=== PATIENT | male | born 1960 | race Caucasian/White ===

== ENCOUNTER → 2021-06-20 15:46 | Outpatient (BNVA) | payer OTHER, SELFPAY | PROVIDERS: Visit Provider Family Medicine | DX: I10 Essential (primary) hypertension (principal); H18.609 Keratoconus, unspecified, unspecified eye; Z94.7 Corneal transplant status; N52.9 Male erectile dysfunction, unspecified | CPT/HCPCS: 80053; 80061; 83036; 85025 ==

== ENCOUNTER 2021-11-22 14:17 | Outpatient (CLI) | payer OTHER, SELFPAY ==
--- NOTE | 2021-11-22 14:30 | XR_ITS ---
WS: [id number] XR KUB [id number] REASON FOR EXAM: Left Flank pain, possible nephrolithiasis FINDINGS: Moderate amount stool throughout the colon. No significant small bowel distention. No free air or retroperitoneal air identified. No significant calcifications in the abdomen or pelvis. Moderate degenerative spondylosis in lumbar spine. Moderate osteoarthritis in the right hip with mild osteoarthritis in the left hip. Bony pelvis otherw ise unremarkable. XR/XR KUB [id number] IMPRESSION: No acute abdominal finding. No urinary tract calculi identified.
== END 2021-11-22 14:18 | disposition home or self-care (01) ==
PROVIDERS: PCP Family Medicine; Visit Provider Family Medicine
DX: R10.9 Unspecified abdominal pain (principal); R31.9 Hematuria, unspecified
CPT/HCPCS: 74018; 81000

== ENCOUNTER → 2021-12-03 12:54 | Outpatient (BNVA) | payer OTHER, SELFPAY | PROVIDERS: PCP Family Medicine; Visit Provider Family Medicine | DX: R10.9 Unspecified abdominal pain (principal); R31.9 Hematuria, unspecified; N52.9 Male erectile dysfunction, unspecified | CPT/HCPCS: 80053; 84153; 85025; 86140 ==

== ENCOUNTER 2022-03-04 13:57 | Outpatient (CLI) | payer OTHER, SELFPAY ==
--- NOTE | 2022-03-04 15:15 | CT_ITS ---
WS: [id number] CT ABDOMEN AND PELVIS NONCONTRAST HISTORY: L flank pain, worsening over 1 month. TECHNIQUE: Imaging performed through the abdomen and pelvis. Coronal and sagittal reformats are submi tted. All CT scans at [facility] use at least one of these dose optimization techniques: auto mated exposure control; mA and/or kV adjustment per patient size (includes targeted exams where dose is matched to clinical indication); or iterative reconstruction. DLP: 1293.21 mGy.cm COMPARISON: None available. Lower thorax: Lung bases are clear. Visualized heart is normal. No hiatal hernia. Liver: Mild hepatic steatosis. No bile duct dilatation. Gallbladder: Normal gallbladder. Pancreas: Low-attenuation throughout the pancreas. No adjacent inflammation. No duct dilatation. Spleen: Normal. Adrenal glands: Normal. No mass. Right kidney: Exophytic mass with wall calcification 1.3 cm lower pole. Nonobstructing calcification 3 mm in the mid kidney. Left kidney: No hydronephrosis. No renal obstruction. No ureteral calcification. Multiple cortical ma sses cannot be further characterized on this unenhanced study. Some of these contain increased densit y while others may be cysts. The largest in the mid kidney is 2.1 cm. There is a nonobstructing calci fication in the lower pole measuring 3 mm. Aorta: Mild atherosclerosis abdominal aorta with no aneurysm. No free fluid, intraperitoneal air or significant lymphadenopathy. GI tract: The appendix is not identified. No GI tract obstruction. Numerous diverticula in the descen ding and sigmoid colon. No acute diverticulitis. Normal appearance of the stomach. Abdominal wall: Small umbilical hernia contains fat only. Pelvis: Normal. Osseous structures: Fat-containing patent LEFT inguinal canal. Urinary bladder is normally distended. No free fluid. Central prostate calcifications. CT/CT kidney stone [id number] IMPRESSION: 1. No acute abdominal or pelvic abnormalities are identified. 2. No renal obstruction. 3. Nonobstructing bilateral renal calculi and bilateral renal masses which may be cysts or complex cyst. Without IV contrast cannot characterize further. Con sawyer helper follow-up ultrasound or renal mass CT protocol. 4. Colonic diverticulosis without acute diverticulitis.
== END 2022-03-04 13:58 | disposition home or self-care (01) ==
PROVIDERS: PCP Family Medicine; Visit Provider Family Medicine
DX: R10.9 Unspecified abdominal pain (principal); R31.9 Hematuria, unspecified; N20.0 Calculus of kidney; K57.30 Diverticulosis of large intestine without perforation or abscess without bleeding
CPT/HCPCS: 74176

== ENCOUNTER 2022-03-29 09:33 | Outpatient (CLI) | payer OTHER, SELFPAY ==
--- NOTE | 2022-03-29 09:48 | XR_ITS ---
WS: [id number] Exam: XR KUB [id number] Date/Time of Exam: 03/29/2022 9:53 AM Reason For Exam: RENAL CALCULI Comparison 11/22/2021. No bowel obstruction or free air. No sign of organ enlargement. 2 mm calcification visualized over th e lower pole of the left renal silhouette that apparently represents a known renal stone. Nonspecific small pelvic calcifications noted. Degenerative change and levoscoliosis of the lumbar spine. Benign -appearing sclerotic bone lesion seen in the medial aspect of the right iliac bone stable. XR/XR KUB [id number] IMPRESSION: 1. 2 mm calcification superimposing the lower pole left kidney apparently repre senting known renal stone. 2. No acute abdominal finding.
== END 2022-03-29 09:34 | disposition home or self-care (01) ==
PROVIDERS: PCP Family Medicine; Visit Provider Urology
DX: N20.0 Calculus of kidney (principal)
CPT/HCPCS: 74018; 81003

== ENCOUNTER 2022-04-05 12:13 | Outpatient (CLI) | payer OTHER, SELFPAY ==
--- NOTE | 2022-04-05 14:00 | CT_ITS ---
WS: [id number] CT ABDOMEN AND PELVIS WITH CONTRAST (renal mass CT protocol) HISTORY: Bilateral renal masses TECHNIQUE: Imaging performed of the abdomen and pelvis with IV contrast. Multiphasic imaging of the abdomen. Coronal and sagittal reformats are submitted. All CT scans at [facility] use at leas t one of these dose optimization techniques: automated exposure control; mA and/or kV adjustment per patient size (includes targeted exams where dose is matched to clinical indication); or iterative rec onstruction. IV CONTRAST: Omnipaque 350; 95 mL IV. Oral contrast: No. DLP: 2781.53 mGy.cm COMPARISON: 03/04/[address] Lower thorax: Lung bases are clear. Heart is normal size. No hiatal hernia. Liver/biliary system: Hepatic steatosis. No mass or bile duct dilatation. Normal portal vein. Gallbladder: Normal. No gallstones or wall thickening. No pericholecystic fluid. Pancreas: Mild fatty replacement. No bile duct dilatation. Spleen: Normal size spleen. No mass or infarct. Adrenal glands: Normal. Right kidney: 11.9 cm in length. No hydronephrosis or central renal mass. Exophytic nonenhancing cyst from the lower pole measures 1.3 cm. There is an additional minimally complex cyst with calcificatio n in the wall which does not enhance in the medial upper pole. Left kidney: 13.8 cm in length. There are multiple low-attenuation masses from the LEFT kidney. The l argest mass is exophytic from the lower pole measuring 2.0 x 1.9 cm. Nonenhancing mass. Additional 0. 9 cm hyperdense nodule from the posterior mid kidney does not enhance. There are additional low-atten uation masses which do not enhance. Some of these are minimally complex containing wall calcification . No solid mass identified. Aorta: Mild atherosclerosis with no aneurysm. Lymphadenopathy: None. Free fluid: None. GI tract: Stomach is not distended. No small bowel obstruction. Moderate diffuse fecal retention and constipation. No appendicitis. Numerous diverticula in the descending and sigmoid colon without acute diverticulitis. Abdominal wall: Fat containing umbilical hernia. Pelvis: No free fluid or adenopathy within the pelvis. Fat-containing patent LEFT inguinal canal. Bones: Mild degenerative disc disease in the lumbar spine. CT/CT abdomen pelvis w con* [id number] IMPRESSION: 1. No renal obstruction. 2. No solid suspicious renal mass. 3. Bilateral renal cysts with bilateral minimally complex renal cyst containin g wall calcification. 4. Distal colonic diverticulosis without acute diverticulitis. 5. No adenopathy or ascites.
[2022-04-05] MEDS: iohexol 350 mg/mL 500 mL Btl (per mL) IV (14:40)
== END 2022-04-05 12:14 | disposition home or self-care (01) ==
LOC: RAD 12:14
PROVIDERS: PCP Family Medicine; Visit Provider Family Medicine
DX: N28.89 Other specified disorders of kidney and ureter (principal); Q61.02 Congenital multiple renal cysts; K57.30 Diverticulosis of large intestine without perforation or abscess without bleeding
CPT/HCPCS: 74177

== ENCOUNTER 2022-06-12 06:12 | Day surgery (SDC) | payer OTHER, SELFPAY ==
[2022-06-10 13:52] VITALS: BMI 36.1
[2022-06-12 06:25] VITALS: BP 152/98; PULSE 108; RESP 18; TEMP 37.1; O2SAT 96
[2022-06-12] MEDS: sodium chloride 0.9% 1,000 ML 30 ML IV (06:31)
--- NOTE | 2022-06-12 07:05 | P.ANESASSM_ITS ---
Pre-Anesthetic Assessment Height/Weight: Height 1.75 m Weight 111.13 kg Temp Pulse Resp BP Pulse Ox O2 Del Method 98.7 F 108 H 18 152/98 96 06/12/22 06:25 06/12/22 06:25 06/12/22 06:25 06/12/22 06:25 06/12/22 06:25 06/12/22 06:25 Preop Diagnosis: screening Operation Date: 06/12/22 07:30 Proposed Procedures p Colonoscopy 69663,Z12.11(Not Applicable) - Dagoberto Felix DO Familial anesthetic complications: none Was Beta Dixie taken within 24 hours: N/A Was Clonidine taken within 24 hours: N/A Last intake: Intake Last Liquid Date 06/11/22 Last Liquid Time 22:00 Last Solid Date 06/10/22 Last Solid Time 19:00 Social No alcohol and No tobacco Exam alert, oriented x 3, clear to auscultation bilaterally and regular rate & rhythm Airway Submandibular: within normal limits Cervical ROM: within normal limits Mallampati: Class I Dentition: full Pulmonary Sleep Apnea CV/HEM Hypertension None reported Hepatic None reported GI None reported Metabolic Morbid Ob[place] [facility] [place] Lower Back Pain Neuropsych None reported Anesthetic Plan ASA status: 2 Anesthesia: MAC Medications/Allergies Home Medications Medication Instructions Recorded Confirmed Last Taken Type prednisolone acetate 1 % eye 1 drp ophthalmic (eye) BID #15 mL 06/20/21 06/10/22 06/11/22 Rx drops,suspension sildenafil 100 mg tablet See Rx Instructions .Route 03/29/22 06/10/22 05/29/22 Rx .COMPLEX sexual activity #20 tabs amlodipine 5 mg tablet 5 mg PO DAILY 06/10/22 06/10/22 06/11/22 History Allergies Allergy/AdvReac Type Severity Reaction Status Date / Time No Known Allergies Allergy Verified 06/10/22 13:53 Current Medications Generic Name Dose Route Start Last Admin Trade Name Freq PRN Reason Stop Dose Admin Sodium Chloride 1,000 mls @ 30 mls/hr 06/12/22 06:30 06/12/22 06:31 Sodium Chloride 0.9% IV 06/13/22 06:29 30 mls/hr .Q24H RACHANA Administration PFSH Anesthesia Medical History UTI (urinary tract infection) Surgical History History of colonoscopy History of cornea transplant History of lithotripsy Family History Mother , at age 38 Cancer Gonzalo Tumor Father , at age 78 Dementia Social History Smoking and tobacco status: never smoked Alcohol intake: current Alcohol intake frequency: holidays/special occasions only Desire information about alcohol rehabilitation?: No Counseling given: No Desire information about substance/drug rehabilitation?: No Counseling given: No Marital status: Current occupational status: employed and retired Current occupation: maintenance parts technician History of recent travel: No Data Anesthesia Cardiac Studies: No Data to Display
--- NOTE | 2022-06-12 07:37 | P.HP_ITS ---
Providers/Chief Complaint Primary Care Provider: Montez Miranda DO Chief Complaint: Z12.11 History of Present Illness Sergo Storey is a 62 year old male here for colonoscopy Medications/Allergies Home Medications Medication Instructions Recorded Confirmed Last Taken Type prednisolone acetate 1 % eye 1 drp ophthalmic (eye) BID #15 mL 06/20/21 06/10/22 06/11/22 Rx drops,suspension sildenafil 100 mg tablet See Rx Instructions .Route 03/29/22 06/10/22 05/29/22 Rx .COMPLEX sexual activity #20 tabs amlodipine 5 mg tablet 5 mg PO DAILY 06/10/22 06/10/22 06/11/22 History Allergies Allergy/AdvReac Type Severity Reaction Status Date / Time No Known Allergies Allergy Verified 06/10/22 13:53 PFSH Acute PFSH: Medical History UTI (urinary tract infection) Surgical History History of colonoscopy History of cornea transplant History of lithotripsy Family History Mother , at age 38 Cancer Gonzalo Tumor Father , at age 78 Dementia Social History Smoking and tobacco status: never smoked Alcohol intake: current Alcohol intake frequency: holidays/special occasions only Desire information about alcohol rehabilitation?: No Counseling given: No Desire information about substance/drug rehabilitation?: No Counseling given: No Marital status: Current occupational status: employed and retired Current occupation: supervisor production department History of recent travel: No Vitals/I&O/Wt Last Vital Signs Temp 98.7 F 06/12/22 06:25 Pulse 108 H 06/12/22 06:25 Resp 18 06/12/22 06:25 BP 152/98 06/12/22 06:25 Pulse Ox 96 06/12/22 06:25 O2 Del Method 06/12/22 06:25 Weight last 48 hrs Weight 245 lb A&P Assessment and plan (1) Screening for malignant neoplasm of colon: Plan Colonoscopy Attestations Medical Necessity Statement*: home Coding Level of Care Code Acute Code for Chg Fwd Diagnoses Screening for malignant neoplasm of colon Z12.11
[2022-06-12 08:10] VITALS: BP 133/89; PULSE 75; RESP 16; TEMP 36.4; O2SAT 94
[2022-06-12 08:20] VITALS: BP 108/74; PULSE 57; RESP 16; O2SAT 93
--- NOTE | 2022-06-12 09:52 | ANE.PACU2 ---
Inpatient post-anesthesia follow up: Airway intact: Yes Vital signs: Temperature 97.6 F Pulse Rate 57 Respiratory Rate 16 Blood Pressure 108/74 Pulse Oximetry 93 Oxygen Delivery Me thod Room Air Oxygen Flow Rate 3 Fraction of Inspir ed Oxygen Hydration adequate: Yes Nausea and vomiting: No Pain level: 1 Mental status: Baseline
== END 2022-06-12 09:05 | disposition home or self-care (01) ==
PROVIDERS: PCP Family Medicine; Visit Provider Surgery
PROC: 0DJD8ZZ Inspection of Lower Intestinal Tract, Via Natural or Artificial Opening Endoscopic (ICD-10-PCS; CPT 45378; principal; 2022-06-12 07:30)
DX: Z12.11 Encounter for screening for malignant neoplasm of colon (principal); K57.30 Diverticulosis of large intestine without perforation or abscess without bleeding; D12.5 Benign neoplasm of sigmoid colon; D12.8 Benign neoplasm of rectum; G47.30 Sleep apnea, unspecified; I10 Essential (primary) hypertension; E66.01 Morbid (severe) obesity due to excess calories; Z68.36 Body mass index [BMI] 36.0-36.9, adult
CPT/HCPCS: 45385; 88305; J2704; J7030

== ENCOUNTER → 2022-08-29 16:14 | Outpatient (BNVA) | payer OTHER, SELFPAY | PROVIDERS: PCP Family Medicine; Visit Provider Urology | DX: N39.0 Urinary tract infection, site not specified (principal); N28.89 Other specified disorders of kidney and ureter; N52.9 Male erectile dysfunction, unspecified | CPT/HCPCS: 81003 ==

== ENCOUNTER 2023-01-08 20:00 | Outpatient (CLI) | payer OTHER, SELFPAY | END 2023-01-08 20:01 | disposition home or self-care (01) | LOC: SLEEP 01-09 05:14 | PROVIDERS: PCP Family Medicine; Visit Provider Family Medicine | DX: G47.33 Obstructive sleep apnea (adult) (pediatric) (principal) | CPT/HCPCS: 95810 ==

== ENCOUNTER → 2023-09-04 11:03 | Outpatient (BNVA) | payer OTHER, SELFPAY | PROVIDERS: PCP Family Medicine; Visit Provider Family Medicine | DX: M54.50 Low back pain, unspecified (principal); I10 Essential (primary) hypertension; G47.33 Obstructive sleep apnea (adult) (pediatric); Z12.5 Encounter for screening for malignant neoplasm of prostate; E55.9 Vitamin D deficiency, unspecified; D22.9 Melanocytic nevi, unspecified | CPT/HCPCS: 80053; 80061; 82306; 84443; 85025; G0103 ==

== ENCOUNTER 2023-09-15 11:26 | Outpatient (CLI) | payer OTHER, SELFPAY ==
--- NOTE | 2023-09-15 11:38 | XRR_ITS ---
PROCEDURE INFORMATION: Exam: XR Lumbosacral Spine Exam date and time: 09/15/2023 11:52 AM Age: 63 years old Clinical indication: Low back pain; Additional info: Chronic back pain, left hip pain. TECHNIQUE: Imaging protocol: Radiologic exam of the lumbosacral spine. Views: 2 or 3 views. COMPARISON: CT abdomen pelvis w con* [id number] 04/05/2022 1:07 PM FINDINGS: Bones/joints: Multilevel disc space narrowing and spurring L1 through L5.. No acute fracture. Normal alignment. Soft tissues: Unremarkable. XR/XR lumbar spine 2-3V* [id number] IMPRESSION: Mild degenerative changes.
== END 2023-09-15 11:27 | disposition home or self-care (01) ==
PROVIDERS: PCP Family Medicine; Visit Provider Family Medicine
DX: M54.50 Low back pain, unspecified (principal); M51.37 Other intervertebral disc degeneration, lumbosacral region
CPT/HCPCS: 72100

== ENCOUNTER → 2024-04-09 13:15 | Outpatient (BNVA) | payer OTHER, SELFPAY | PROVIDERS: PCP Family Medicine; Visit Provider Family Medicine | DX: R06.09 Other forms of dyspnea; R61 Generalized hyperhidrosis; Z12.5 Encounter for screening for malignant neoplasm of prostate; R79.89 Other specified abnormal findings of blood chemistry | CPT/HCPCS: 80053; 80061; 82306; 82607; 83036; 84439; 84443; 85025; G0103 ==

== ENCOUNTER 2024-07-01 14:46 | Outpatient (CLI) | payer OTHER, SELFPAY | END 2024-07-01 14:47 | disposition home or self-care (01) | LOC: SLEEP 14:48 | PROVIDERS: PCP Family Medicine; Visit Provider Family Medicine | DX: G47.33 Obstructive sleep apnea (adult) (pediatric) (principal) | CPT/HCPCS: G0399 ==

== ENCOUNTER → 2024-09-17 10:49 | Outpatient (BNVA) | payer OTHER, SELFPAY | PROVIDERS: PCP Family Medicine; Visit Provider Family Medicine | DX: I10 Essential (primary) hypertension (principal) | CPT/HCPCS: 80048 ==

== ENCOUNTER → 2025-04-05 11:44 | Outpatient (BNVA) | payer OTHER, SELFPAY | PROVIDERS: PCP Family Medicine; Visit Provider Family Medicine | DX: I10 Essential (primary) hypertension (principal); Z12.5 Encounter for screening for malignant neoplasm of prostate; R97.20 Elevated prostate specific antigen [PSA] | CPT/HCPCS: 80053; 80061; 84153; 85025 ==